=== PATIENT | male | born 1980 | race Caucasian/White ===

== ENCOUNTER 2020-02-13 17:34 | Outpatient (CLI) | payer BC | END 2020-02-13 17:35 | disposition home or self-care (01) | LOC: LAB.S 17:34 | PROVIDERS: ATTEND Internal Medicine | DX: M54.5 Low back pain (principal); M54.6 Pain in thoracic spine | CPT/HCPCS: 36415; 86140 ==

== ENCOUNTER 2020-08-22 17:11 | Outpatient (CLI) | payer BC | END 2020-08-22 17:12 | disposition home or self-care (01) | LOC: RT 17:11 | PROVIDERS: ATTEND Internal Medicine | DX: R00.2 Palpitations (principal); Z11.4 Encounter for screening for human immunodeficiency virus [HIV]; Z11.59 Encounter for screening for other viral diseases; Z13.220 Encounter for screening for lipoid disorders | CPT/HCPCS: 36415; 80061; 83721; 86803; 87389; 93005 ==

== ENCOUNTER 2020-08-22 17:15 | Outpatient (CLI) | payer BC ==
[2020-08-22 17:50] LABS: CHOL/HDL RATIO 2.4 (<5.0); CHOLESTEROL 186 mg/dL; HDL CHOLESTEROL 76 mg/dL; LDL CHOLESTEROL,CALCULATED 99 mg/dL; LDL/HDL RATIO 1.3 (<3.6); TRIGLYCERIDES 53 mg/dL; VLDL CHOLESTEROL 11 mg/dL
[2020-08-23 14:31] LABS: HIV AG/AB 4TH GEN NON-REACTIVE (NON-REACTIVE)
[2020-08-23 15:01] LABS: HEPATITIS C ANTIBODY NON-REACTIVE (NON-REACTIVE)
== END 2020-08-22 17:16 | disposition home or self-care (01) ==
LOC: LAB 17:15
PROVIDERS: ATTEND Internal Medicine
DX: Z11.4 Encounter for screening for human immunodeficiency virus [HIV] (principal); Z11.59 Encounter for screening for other viral diseases; Z13.220 Encounter for screening for lipoid disorders
CPT/HCPCS: 36415; 80061; 83721; 86803; 87389